=== PATIENT | male | born 1975 | race Caucasian/White ===

== ENCOUNTER 2020-12-07 14:24 | Emergency (ER) | payer SELFPAY ==
[~2020-12-07] VITALS: Ht 188 cm; Wt 97.7 kg
[2020-12-07 14:31] VITALS: BP 116/72; Ht 188 cm; Wt 97.7 kg
[2020-12-07 15:13] LABS: BASOPHILS 0.1 % (0-2); EOSINOPHILS 0.1 % (0-7); HEMATOCRIT 43.2 % (42.0-54.0); HEMOGLOBIN 14.3 g/dL (13.5-17.5); LYMPHOCYTES 4.9 % (15-50); MCH 30.2 pg (26.0-34.0); MCHC 33.1 g/dL (31.0-37.0); MCV 91.2 fL (80.0-100.0); MEAN PLATELET VOLUME 7.8 fL (7.4-10.4); MONOCYTES 4.7 % (2-11); NEUTROPHILS 90.2 % (40-80); PLATELET COUNT 294 10x3/uL (130-400); RBC 4.74 10x6/uL (4.20-6.10); RDW 12.9 % (11.5-14.5); WBC 12.5 10x3/uL (4.8-10.8)
[2020-12-07 15:25] LABS: CALC OSMOLALITY 277 mosm/kg (275-300); CALCIUM 8.5 mg/dL (8.5-10.1); CARBON DIOXIDE 25.3 mmol/L (21.0-32.0); CHLORIDE - SERUM 103 mmol/L (98-107); CREATININE - SERUM 1.1 mg/dL (0.6-1.3); GLUCOSE 119 mg/dL (74-106); POTASSIUM - SERUM 4.3 mmol/L (3.5-5.1); SODIUM 139 mmol/L (136-145); UREA NITROGEN 10 mg/dL (7-18); eGFR NON AFRICAN AMERICAN 77 mL/min (90-120)
[2020-12-07 15:34] LABS: ALBUMIN 3.5 g/dL (3.4-5.0); ALKALINE PHOSPHATASE 175 U/L (30-120); ALT (SGPT) 38 U/L (10-68); BILIRUBIN - TOTAL 0.57 mg/dL (0.2-1.3); PROTEIN - SERUM 7.3 g/dL (6.4-8.2); TROPONIN-I < 0.017 ng/mL (0.000-0.060)
[2020-12-07 15:53] LABS: APTT 24.9 SECONDS (22.8-39.4); INR 1.07 (0.85-1.17); PROTIME 12.8 SECONDS (11.6-15.0)
[2020-12-09 05:44] VITALS: Ht 188 cm; Wt 97.7 kg
== END 2020-12-07 17:13 | disposition home or self-care (01) ==
LOC: D.ER 14:24
PROVIDERS: Student in an Organized Health Care Education/Training Program
DX: R05 Cough (principal); Z20.822 Contact with and (suspected) exposure to COVID-19; R07.9 Chest pain, unspecified

== ENCOUNTER 2020-12-08 14:53 | Inpatient (IN) | payer OTHER ==
[~2020-12-08] VITALS: Ht 188 cm; Wt 95.5 kg
--- NOTE | ~2020-12-08 | EC ---
PATIENT:JHON ABREU DATE OF SERVICE: 12/08/20 SEX: M MEDICAL RECORD: [id number] DATE OF : 77 LOCATION:D.M2 D.214 AGE OF PATIENT: 45 ADMISSION DATE: 12/08/20 REFERRING PHYSICIAN: INTERPRETING PHYSICIAN: TONY TOM MD ECHOCARDIOGRAM REPORT ECHO CHARGES 4 ECHO COMPLETE Date: 12/10/19 CLINICAL DIAGNOSIS: DYSPNEA, ELEVATED TROPONIN ECHOCARDIOGRAPHIC MEASUREMENTS (adult normal given) AC root (d.<3.7cm) 3.7 cm LV Septum d (<1.2 cm> 1.1 cm Valve Excursion 2.0 cm LV Septum (systole) 1.6 cm Left Atria (s.<4.0cm> 3.7 cm LVPW d(<1.2cm) 1.0 cm RV (d.<2.3cm) 4.7 cm LVPW (sytole) 1.4 cm LV diastole(<5.6CM) 4.8 cm MV E-F(>70mm/sec) cm LV systole 3.0 cm LVOT Diameter 2.0 cm MV exc.(>10mm) cm Est.ejection fraction (50-75%) 55 % DOPPLER: LVIT cm/sec A 58 cm/sec E 67 cm/sec LA cm/sec RVSP 36 mmHg LVOT 101 cm/sec AOP1/2T m/s Asc. Ao 134 cm/sec RVOT 64 cm/sec RA 5.8 cm/sec PA 78 cm/sec AV Gradient Peak 7 mmHg AV Mean 3 mmHg AV Area 2.4 cm MV Gradient Peak 2 mmHg MV Mean 0.9 mmHg MV Area cm COMMENTS: Order Fulfillment Specialist: Von CLIFFORD Conduit Installer: 3 Dr. Lewis TAPE# Pericardial Effusion N DATE OF SERVICE: Adequate 2D, color flow imaging, spectral Doppler, and M-Mode. No LVH. LV internal dimensions are normal. Wall motion normal. EF greater than or equal to 55%. Aortic valve is tricuspid. No evidence of stenosis by Doppler interrogation. Left atrium is normal at 3.7 cm. Mitral valve shows no prolapse. Trace MR. Right-sided chambers are grossly normal. Mild TR. TRANSINT:[id number] Voice Confirmation ID: [id number] DOCUMENT ID: [id number] ECHOCARDIOGRAM REPORT [id number] JHON ABREU TONY TOM MD CC: [id number] DICTATION DATE: 12/10/2014 INTERNIST MEDICAL DOCTOR MD: 12/10/20 112 ADM IN [place] [id number] [place] [id number]
[2020-12-08 15:35] LABS: BASOPHILS 0.7 % (0-2); EOSINOPHILS 0 % (0-7); HEMATOCRIT 41.2 % (42.0-54.0); MCH 30.8 pg (26.0-34.0); MCHC 33.9 g/dL (31.0-37.0); MCV 90.8 fL (80.0-100.0); MEAN PLATELET VOLUME 7.2 fL (7.4-10.4); MONOCYTES 4.2 % (2-11); NEUTROPHILS 74.1 % (40-80); PLATELET COUNT 266 10x3/uL (130-400); RBC 4.54 10x6/uL (4.20-6.10); RDW 13.1 % (11.5-14.5); WBC 9.4 10x3/uL (4.8-10.8)
[2020-12-08 15:38] LABS: APTT 26.7 SECONDS (22.8-39.4); INR 1.1 (0.85-1.17); PROTIME 13.2 SECONDS (11.6-15.0)
[2020-12-08 15:47] LABS: CALC OSMOLALITY 275 mosm/kg (275-300); CALCIUM 8.3 mg/dL (8.5-10.1); CARBON DIOXIDE 28.3 mmol/L (21.0-32.0); CHLORIDE - SERUM 100 mmol/L (98-107); CREATININE - SERUM 1.4 mg/dL (0.6-1.3); GLUCOSE 119 mg/dL (74-106); POTASSIUM - SERUM 3.3 mmol/L (3.5-5.1); SODIUM 137 mmol/L (136-145); UREA NITROGEN 15 mg/dL (7-18); eGFR NON AFRICAN AMERICAN 58 mL/min (90-120)
[2020-12-08 16:08] LABS: ALKALINE PHOSPHATASE 41 U/L (30-120); BILIRUBIN - TOTAL 1.05 mg/dL (0.2-1.3); CKMB 0.9 U/L (0.0-3.6); CREATINE KINASE 484 UL (21-232); FERRITIN 397 ng/mL (3-244); PRO BNP 48 pg/mL (0-125); PROTEIN - SERUM 6.9 g/dL (6.4-8.2); TROPONIN-I 0.055 ng/mL (0.000-0.060)
[2020-12-08 16:26] LABS: ALBUMIN 3.2 g/dL (3.4-5.0); ALT (SGPT) 36 U/L (10-68); C-REACTIVE PROTEIN 6.4 mg/dL (0.0-0.9)
[2020-12-08 17:00] VITALS: BP 109/65
[2020-12-08 17:13] LABS: CKMB 0.7 U/L (0.0-3.6); CREATINE KINASE 490 UL (21-232)
[2020-12-08 17:16] LABS: TROPONIN-I 0.266 ng/mL (0.000-0.060)
[2020-12-08 18:00] VITALS: BP 102/60
[2020-12-08 20:00] VITALS: BP 101/68
[2020-12-08 21:30] VITALS: BP 100/67
[2020-12-08 22:00] VITALS: BP 100/67
[2020-12-08 23:00] VITALS: BP 114/72
[2020-12-09 00:59] LABS: BILIRUBIN NEGATIVE (NEGATIVE); KETONE NEGATIVE (NEGATIVE); NITRITE NEGATIVE (NEGATIVE); UROBILINOGEN NORMAL mg/dL (< 2)
[2020-12-09 01:00] VITALS: BP 103/68
[2020-12-09 02:00] VITALS: BP 96/52
--- NOTE | 2020-12-09 03:28 | NUR ---
ROBERT NOTIFIED OF PATIENT NEW ROOM NUMBER
[2020-12-09 03:57] LABS: BASOPHILS 0.2 % (0-2); EOSINOPHILS 0 % (0-7); HEMATOCRIT 44.2 % (42.0-54.0); HEMOGLOBIN 14.6 g/dL (13.5-17.5); LYMPHOCYTES 15.3 % (15-50); MCH 30.2 pg (26.0-34.0); MCHC 33.1 g/dL (31.0-37.0); MCV 91.3 fL (80.0-100.0); MEAN PLATELET VOLUME 7.5 fL (7.4-10.4); MONOCYTES 9.6 % (2-11); NEUTROPHILS 74.9 % (40-80); PLATELET COUNT 300 10x3/uL (130-400); RBC 4.85 10x6/uL (4.20-6.10); RDW 13.5 % (11.5-14.5); WBC 7.6 10x3/uL (4.8-10.8)
[2020-12-09 04:18] LABS: ALBUMIN 3.4 g/dL (3.4-5.0); ALKALINE PHOSPHATASE 40 U/L (30-120); ALT (SGPT) 42 U/L (10-68); BILIRUBIN - TOTAL 1.04 mg/dL (0.2-1.3); CALC OSMOLALITY 281 mosm/kg (275-300); CALCIUM 8.7 mg/dL (8.5-10.1); CARBON DIOXIDE 30.7 mmol/L (21.0-32.0); CHLORIDE - SERUM 103 mmol/L (98-107); CKMB 0.9 U/L (0.0-3.6); CREATINE KINASE 485 UL (21-232); GLUCOSE 109 mg/dL (74-106); PROTEIN - SERUM 7.4 g/dL (6.4-8.2); SODIUM 141 mmol/L (136-145); UREA NITROGEN 13 mg/dL (7-18)
[2020-12-09 04:29] LABS: MAGNESIUM - SERUM 2.3 mg/dL (1.8-2.4); POTASSIUM - SERUM 4.6 mmol/L (3.5-5.1); eGFR NON AFRICAN AMERICAN 86 mL/min (90-120)
[2020-12-09 04:30] LABS: TROPONIN-I 0.145 ng/mL (0.000-0.060)
[2020-12-09 05:44] VITALS: BP 113/80; Ht 188 cm; Wt 95.5 kg
[2020-12-09 08:26] LABS: FERRITIN 366 ng/mL (3-244)
[2020-12-09 08:29] LABS: LDH 898 U/L (85-227)
[2020-12-09 10:13] LABS: CKMB 0.5 U/L (0.0-3.6); CREATINE KINASE 363 UL (21-232)
[2020-12-09 10:14] LABS: TROPONIN-I 0.099 ng/mL (0.000-0.060)
[2020-12-09 11:05] VITALS: BP 126/81
[2020-12-09 15:51] LABS: SARS-CoV-2 ANTIGEN NEGATIVE- SARS-COV-2 (NEGATIVE)
[2020-12-09 16:04] VITALS: BP 114/72
[2020-12-09 20:35] VITALS: BP 115/69
--- NOTE | 2020-12-10 00:40 | NUR ---
IV TO LEFT FOREARM SWOLLEN, IV CATH REMOVED, TIP INTACT. RESITED IV TO LEFT WRIST. 20 GUAGE, FIRST ATTEMPT, PT TOLERATED WELL. SANDWICH TRAY GIVEN, PT STATED THAT ALL HE HAS TO EAT ALL DAY IS BROTH AND JELLO, WHEN ASKED PT STATED THAT HE TOLERATED THE LIQUIDS WITH OUT ANY N/V. DIET ADVANCED ORDERED.
[2020-12-10 03:08] VITALS: BP 122/77
--- NOTE | 2020-12-10 05:04 | NUR ---
I have reviewed this patient and I concur with the Shift Assessment completed by the Licensed Practical Nurse today this shift.
--- NOTE | 2020-12-10 06:30 | NUR ---
RECIEVED BEDSIDE REPORT, PATIENT AWAKE AND ALERT CONTINUES ON O2 AT 4L, IV TO LEFT WRIST 20G PATIENT. RESP EVEN AND UNLABORED.
[2020-12-10 06:46] LABS: ALBUMIN 2.8 g/dL (3.4-5.0); ALKALINE PHOSPHATASE 38 U/L (30-120); ALT (SGPT) 40 U/L (10-68); CALC OSMOLALITY 278 mosm/kg (275-300); CALCIUM 8.4 mg/dL (8.5-10.1); CARBON DIOXIDE 27.2 mmol/L (21.0-32.0); CHLORIDE - SERUM 105 mmol/L (98-107); CREATININE - SERUM 0.9 mg/dL (0.6-1.3); GLUCOSE 112 mg/dL (74-106); MAGNESIUM - SERUM 2.2 mg/dL (1.8-2.4); POTASSIUM - SERUM 3.5 mmol/L (3.5-5.1); PROTEIN - SERUM 6.5 g/dL (6.4-8.2); SODIUM 140 mmol/L (136-145); UREA NITROGEN 11 mg/dL (7-18); eGFR NON AFRICAN AMERICAN > 90 mL/min (90-120)
[2020-12-10 06:58] LABS: BASOPHILS 0.2 % (0-2); EOSINOPHILS 0.1 % (0-7); HEMATOCRIT 37.1 % (42.0-54.0); HEMOGLOBIN 12.8 g/dL (13.5-17.5); LYMPHOCYTES 17.9 % (15-50); MCH 31.3 pg (26.0-34.0); MCHC 34.6 g/dL (31.0-37.0); MCV 90.6 fL (80.0-100.0); MEAN PLATELET VOLUME 7.7 fL (7.4-10.4); MONOCYTES 7.6 % (2-11); NEUTROPHILS 74.2 % (40-80); PLATELET COUNT 290 10x3/uL (130-400); RBC 4.09 10x6/uL (4.20-6.10); RDW 12.9 % (11.5-14.5); WBC 7.9 10x3/uL (4.8-10.8)
[2020-12-10 09:00] VITALS: BP 159/59
--- NOTE | 2020-12-10 13:42 | NUR ---
PATIENT AWAKE AND ALERT, ABLE TO MAKE NEEDS KNOWN, RESP EVEN AND UNLABORED ON 4L O2. LUNG SOUNDS CLEAR BUT HAS SOME WHEEZING. NO SHORTNESS OF BREATH NOTED. O2 SAT 97. HEART SOUNDS REGULAR RATE AND RYTHYM. PATIENT IS READY TO GO HOME AND ENOURAGED TO DO WHATEVER IS NEEDED TO GET THERE. PATIENT IS ABLE TO MOVE AROUND ROOM. IV TO LEFT WRIST PATENT FLUIDS FLOWING.
[2020-12-10 15:00] VITALS: BP 130/68
[2020-12-10 20:56] VITALS: BP 116/62
--- NOTE | 2020-12-11 01:00 | NUR ---
I have reviewed this patient and I concur with the Shift Assessment completed by the Licensed Practical Nurse today this shift.
[2020-12-11 05:05] LABS: BASOPHILS 0.4 % (0-2); EOSINOPHILS 0.1 % (0-7); HEMOGLOBIN 12.2 g/dL (13.5-17.5); LYMPHOCYTES 12.4 % (15-50); MCH 30.6 pg (26.0-34.0); MCHC 33.9 g/dL (31.0-37.0); MCV 90.3 fL (80.0-100.0); MEAN PLATELET VOLUME 7.6 fL (7.4-10.4); MONOCYTES 5.7 % (2-11); NEUTROPHILS 81.4 % (40-80); PLATELET COUNT 333 10x3/uL (130-400); RBC 3.99 10x6/uL (4.20-6.10); RDW 12.9 % (11.5-14.5)
[2020-12-11 05:21] VITALS: BP 115/54
[2020-12-11 05:24] LABS: ALBUMIN 2.8 g/dL (3.4-5.0); ALKALINE PHOSPHATASE 38 U/L (30-120); ALT (SGPT) 61 U/L (10-68); BILIRUBIN - TOTAL 0.49 mg/dL (0.2-1.3); CALC OSMOLALITY 278 mosm/kg (275-300); CALCIUM 8.4 mg/dL (8.5-10.1); CARBON DIOXIDE 26.5 mmol/L (21.0-32.0); CHLORIDE - SERUM 106 mmol/L (98-107); CREATININE - SERUM 0.9 mg/dL (0.6-1.3); GLUCOSE 118 mg/dL (74-106); MAGNESIUM - SERUM 2.1 mg/dL (1.8-2.4); POTASSIUM - SERUM 4.1 mmol/L (3.5-5.1); PROTEIN - SERUM 6.3 g/dL (6.4-8.2); SODIUM 140 mmol/L (136-145); UREA NITROGEN 9 mg/dL (7-18); eGFR NON AFRICAN AMERICAN > 90 mL/min (90-120)
--- NOTE | 2020-12-11 06:50 | NUR ---
BEDSIDE REPORT GIVEN, RESP EVEN AND UNLABORED. O2 IN USE AT 4L PATIENT SLEEPING COMFORTABLY. IV TO LEFT WRIST PATENT.
[2020-12-11 08:28] VITALS: BP 126/78
[2020-12-11 12:03] VITALS: BP 122/68
--- NOTE | 2020-12-11 14:39 | NUR ---
PATIENT AWAKE AND ALERT. READY TO GO HOME EXPLAINED HE REQUIRED ANOTHER DAY OF IV ANTIBIOTIC AND STERIOD TREATMENT. PATIENT UNDERSTOOD. RESP EVEN AND UNLABORED ON ROOM AIR. LUNG SOUNDS CTA, SLIGHT WHEEZE TO LOWER LOBES. SATS 98 ON 4L. HEART SOUNDS REGULAR RATE AND RYTHYM. BOWEL SOUNDS ACTIVE X 4. NON TENDER ABDOMEN. PATIENT HAS BEEN ACTIVELY DOING BREATHING TREATMENTS, UP AT [place], EXERCISING IN BED AND USING INCENTIVE SPIROMATER.
[2020-12-11 16:23] VITALS: BP 122/75
--- NOTE | 2020-12-11 17:31 | NUR ---
I have reviewed this patient and I concur with the Shift Assessment completed by the Licensed Practical Nurse today this shift.
--- NOTE | 2020-12-11 17:44 | MORECARE ---
CASE MANAGEMENT DISCHARGE SUMMARY PATIENT: JHON NAZARIO UNIT: [id number] ADM DATE: 12/08/20 AGE: 45 : 77 SEX: M ROOM/BED: D.2140 AUTHOR: JOY,DOC PHYSICIAN: REFERRING PHYSICIAN: BETH HUNTER MD DATE OF SERVICE: 12/11/20 Case Management Discharge Planning Summary COMMENTS ENTERED DATE: 12/11/20 17:36 CT COMMENT TYPE: Discharge Planning REVIEWER: Luther Hook CM met with patient to complete DC plan and to evaluate needs. Patient lives independently with spouse, Felipa Nazario, . Patient stated that his home is safe and has electricity and running water. Patient stated that he has no problems paying for medications and he fills his medications at [facility] on [address]. Patient stated that his primary care physician is Dr. Cortés. At discharge, the patient plans to return home and feels this is a safe discharge. CM discussed availability of home health, rehab services, and medical equipment. Patient declined HHS, SNF, and but would like oxygen through [facility]. ESTEFANY signed and placed in chart. Patient voiced no other needs at this time and is satisfied with DC plan. CM will continue to follow and will assist as needed with dc plans/needs DCP REVIEW SUMMARY ANTICIPATED D/C DATE: EXPECTED LOS : CASE STATUS: DCP Initiated INITIAL REVIEW: 12/08/2020 INITIAL REVIEWER: Luther Hook FINAL DISCHARGE DISPOSITION: : FINAL REVIEWER: FINAL REVIEW DATE: DCP Focus Questions & Answers DCP Evaluation QUESTION: ANSWER Patient gives permission to discuss discharge plans with: (name, relationship and number) : spouse, Felipa Nazario, Patient's ability to cope with chronic illness : d. No chronic illness Patient's current cognitive status: : *Oriented to person, place, situation, time and present Family / Caregiver's ability to cope with chronic illness: : a. Adequate (ability to meet patient's medical needs, ensures patient attends medical appts.) Patient and/or caregiver agree upon recommended discharge plan? : Yes Physical Status: : Independent with ADL's Family / Caregiver's ability to cope with chronic illness: : a. Adequate (ability to meet patient's medical needs, ensures patient attends medical appts.) Functional screen assessment: : Basic needs can adequately be met by self Does the patient have the ability to pay for or attain post discharge needs / services? : Yes Living Arrangements: : Home with Spouse/Significant Other Is there a likelihood that the patient will require additional services to return to the preadmission environment? : Yes Equipment needed for post hospitalization: : None Baseline cognitive status: : *Oriented to person, place, situation, time and present Patient with capacity for self-care or can be cared for in same environment as prior to hospitalization? : Yes Physical environment modification needed / anticipated for discharge: : No Medication Management: : Patient states can afford medications Medication Management: : Patient states can read and understand medication labels Pharmacy name(s): : [facility] on [address] Does Patient have transportation to get home and to follow-up medical appointments when discharged from the hospital? : Yes Would patient like to participate in any Care Coordination programs (if applicable): : Not applicable Does the patient have electricity at home? : Yes Does the patient have running water in their house? : Yes Equipment in use: : None Mental health screen: : No mental health history DCP Re-evaluation QUESTION: ANSWER Would patient like to participate in any Care Coordination programs (if applicable): : Not applicable PATIENT: HJON NAZARIO ENCOUNTER: [id number] MEDICAL RECORD#: [id number] ADMISSION DATE: 12/08/2020 DISCHARGE DATE: ATTENDING MD: BETH CUBA : AGE: 45 MARITAL STATUS: U DC PLAN ID: [id number] FACILITY: [facility] PRINTED ON: 12/11/20 17:44 CT All edits/amendments must be made on the electronic document DICTATION DATE: 12/11/201743 CAR FRAMER: SUBHASH 12/11/201743 RPT#: [id number] DC DATE: STATUS: ADM IN [facility] [address] [place] [address] END OF REPORT
[2020-12-11 20:00] VITALS: BP 112/69
--- NOTE | 2020-12-11 22:12 | NUR ---
ASSESSMENT COMPLETED AT 1935 HRS. VSS. SR PER CMHR 80. ALERT AND ORIENTED TO PERSON,PLACE AND TIME. SALES. PALPABLE PERIPHERAL PULSES. O2 4LNC. LUGS DIMINISHED IN BASES BILAT. IV TO INNER L WRIST WITH NS AT TKO. IV PATENT. PM MEDS GIVEN. PT CURRENTLY WATCHING TV. SR UP X1, CALL LIGHT WITHIN REACH.
--- NOTE | 2020-12-12 00:07 | NUR ---
PT RESTING WITH EYES CLOSED. RESP EVEN AND REGULAR. SR UP X1, CALL LIGHT WITHIN REACH.
--- NOTE | 2020-12-12 02:25 | NUR ---
PT RESTING WITH EYES CLOSED. RESP EVEN AND REGULAR. CALL LIGHT WITHIN REACH.
--- NOTE | 2020-12-12 03:52 | NUR ---
PT RESTING WITH EYES CLOSED. RESP EVEN AND REGULAR. CALL LIGHT WITHIN REACH.
[2020-12-12 04:00] VITALS: BP 105/63
--- NOTE | 2020-12-12 06:11 | NUR ---
VSS THROUGHOUT NIGHT. SR PER CM. PT RESTED WELL DURING SHIFT. NEEDS MET; WILL CONTINUE TO MONITOR.
--- NOTE | 2020-12-12 07:11 | NUR ---
RECEIVE SHIFT REPORT. RESTING IN BED ON 4L NC. LEFT WRIST IV INFILTRATED. D/C IV AND COLD COMPRESS PLACED ON SITE. PATIENT DISCHARGING HOME TODAY. CONTINUE POC AND SAFETY PRECAUTIONS.
[2020-12-12] MEDS ORDERED: VENTOLIN HFA [SP8 GM INH (08:00)
[2020-12-12] MEDS ORDERED: VITAMIN D325 MC1 PO (08:01)
[2020-12-12] MEDS ORDERED: MUCINEX600 MG PO (08:01)
[2020-12-12] MEDS ORDERED: MELATONIN 3 MG1 TAB PO (08:01)
[2020-12-12] MEDS ORDERED: DULERA 100 MCG8.8 GM INH (08:01)
[2020-12-12] MEDS ORDERED: TESSALON PERLE100 MG PO (08:01)
[2020-12-12] MEDS ORDERED: DECADRON4 MG PO (08:03)
[2020-12-12] MEDS ORDERED: VITAMIN C PO (08:03)
[2020-12-12] MEDS ORDERED: ADOXA100 MG PO (08:03)
--- NOTE | 2020-12-12 09:46 | NUR ---
DISCHARGE INSTRUCTIONS GIVEN VERBALLY AND HANDOUTS PROVIDED. TAKEN DOWN TO ED ENTRANCE VIA WHEELCHAIR. REMAINS FREE FROM INJURY.
--- NOTE | 2020-12-13 16:40 | MORECARE ---
CASE MANAGEMENT DISCHARGE SUMMARY PATIENT: JHON NAZARIO UNIT: [id number] ADM DATE: 12/08/20 AGE: 45 : 77 SEX: M ROOM/BED: D.2140 AUTHOR: JOY,DOC PHYSICIAN: REFERRING PHYSICIAN: BETH HUNTER MD DATE OF SERVICE: 12/13/20 Case Management Discharge Planning Summary COMMENTS ENTERED DATE: 12/11/20 17:36 CT COMMENT TYPE: Discharge Planning REVIEWER: Luther Hook CM met with patient to complete DC plan and to evaluate needs. Patient lives independently with spouse, Felipa Nazario, . Patient stated that his home is safe and has electricity and running water. Patient stated that he has no problems paying for medications and he fills his medications at [facility] on [address]. Patient stated that his primary care physician is Dr. Cortés. At discharge, the patient plans to return home and feels this is a safe discharge. CM discussed availability of home health, rehab services, and medical equipment. Patient declined HHS, SNF, and but would like oxygen through [facility]. ESTEFANY signed and placed in chart. Patient voiced no other needs at this time and is satisfied with DC plan. CM will continue to follow and will assist as needed with dc plans/needs DCP REVIEW SUMMARY ANTICIPATED D/C DATE: EXPECTED LOS : CASE STATUS: DCP Initiated INITIAL REVIEW: 12/08/2020 INITIAL REVIEWER: Luther Hook FINAL DISCHARGE DISPOSITION: : FINAL REVIEWER: FINAL REVIEW DATE: DCP Focus Questions & Answers DCP Evaluation QUESTION: ANSWER Patient and/or caregiver agree upon recommended discharge plan? : Yes Family / Caregiver's ability to cope with chronic illness: : a. Adequate (ability to meet patient's medical needs, ensures patient attends medical appts.) Patient's current cognitive status: : *Oriented to person, place, situation, time and present Patient's ability to cope with chronic illness : d. No chronic illness Patient gives permission to discuss discharge plans with: (name, relationship and number) : spouse, Felipa Nazario, Does the patient have the ability to pay for or attain post discharge needs / services? : Yes Functional screen assessment: : Basic needs can adequately be met by self Family / Caregiver's ability to cope with chronic illness: : a. Adequate (ability to meet patient's medical needs, ensures patient attends medical appts.) Physical Status: : Independent with ADL's Equipment needed for post hospitalization: : None Is there a likelihood that the patient will require additional services to return to the preadmission environment? : Yes Living Arrangements: : Home with Spouse/Significant Other Patient with capacity for self-care or can be cared for in same environment as prior to hospitalization? : Yes Baseline cognitive status: : *Oriented to person, place, situation, time and present Physical environment modification needed / anticipated for discharge: : No Medication Management: : Patient states can read and understand medication labels Medication Management: : Patient states can afford medications Pharmacy name(s): : [facility] on [address] Does Patient have transportation to get home and to follow-up medical appointments when discharged from the hospital? : Yes Would patient like to participate in any Care Coordination programs (if applicable): : Not applicable Does the patient have electricity at home? : Yes Does the patient have running water in their house? : Yes Equipment in use: : None Mental health screen: : No mental health history DCP Re-evaluation QUESTION: ANSWER Would patient like to participate in any Care Coordination programs (if applicable): : Not applicable PATIENT: JHON NAZARIO ENCOUNTER: [id number] MEDICAL RECORD#: [id number] ADMISSION DATE: 12/08/2020 DISCHARGE DATE: 12/12/2020 ATTENDING MD: BETH CUBA : AGE: 45 MARITAL STATUS: U DC PLAN ID: [id number] FACILITY: [facility] PRINTED ON: 12/13/20 16:40 CT All edits/amendments must be made on the electronic document DICTATION DATE: 12/13/20 1640 FIELD MARKETING DIRECTOR: SUBHASH 12/13/20 1640 RPT#: [id number] DC DATE:12/12/20 STATUS: DIS IN [facility] [address] [place] [address] END OF REPORT
== END 2020-12-12 09:47 | disposition home or self-care (01) | DRG 871 ==
LOC: D.ER 14:53 → D.M2 16:48 → D.EDHOLD 16:48 → D.M2 12-09 02:18
PROVIDERS: Family Medicine; Internal Medicine Pulmonary Disease; ADMIT Family Medicine; ATTEND Family Medicine
DX: A41.9 Sepsis, unspecified organism (principal); J12.82 Pneumonia due to coronavirus disease 2019; I21.9 Acute myocardial infarction, unspecified; J96.01 Acute respiratory failure with hypoxia; N17.9 Acute kidney failure, unspecified; E87.6 Hypokalemia

== ENCOUNTER → 2020-12-16 11:14 | Outpatient (CLI) | payer OTHER ==
[2020-12-09 05:44] VITALS: BMI 27.0
[~2020-12-16 11:14] MED LIST: ADOXA100 MG PO; DECADRON4 MG PO; DULERA 100 MCG8.8 GM INH; MELATONIN 3 MG1 TAB PO; MUCINEX600 MG PO; TESSALON PERLE100 MG PO; VENTOLIN HFA [SP8 GM INH; VITAMIN C PO; VITAMIN D325 MC1 PO
== END | disposition home or self-care (01) ==
LOC: D.RAD 11:14
PROVIDERS: ATTEND Nurse Practitioner Family
DX: Z20.822 Contact with and (suspected) exposure to COVID-19 (principal)

== ENCOUNTER → 2020-12-23 12:03 | Outpatient (CLI) | payer OTHER ==
[2020-12-09 05:44] VITALS: BMI 27.0
== END | disposition home or self-care (01) ==
LOC: D.RAD 12:03
PROVIDERS: ATTEND Nurse Practitioner Family
DX: R05 Cough (principal)

== ENCOUNTER → 2020-12-30 11:45 | Outpatient (CLI) | payer OTHER ==
[2020-12-09 05:44] VITALS: BMI 27.0
== END | disposition home or self-care (01) ==
LOC: D.RAD 11:45
PROVIDERS: ATTEND Nurse Practitioner Family
DX: R05 Cough (principal)